=== PATIENT | male | born 1945 | race Caucasian/White ===

== ENCOUNTER 2018-06-10 00:31 | Inpatient (IN) | payer MEDICARE, OTHER ==
[2018-06-09 15:40] LABS: INR 1.34
--- NOTE | 2018-06-09 19:22 | RADIOLOGY IMAGING REPORT ---
FACILITY: [facility] PATIENT NAME: Magdy Rizvi : 1945 MR: [id number] V: [id number] EXAM DATE: ORDERING PHYSICIAN: LILLI STACY TECHNOLOGIST: Location: [facility] [place] Patient: Magdy Rizvi : 1945 Visit/Account:[id number] Date of Sevice: 06/09/2018 CT right shoulder Indication: Reverse total shoulder arthroplasty. Placement of antibiotic eluding spacer. Comparison: Plain radiographs right shoulder on 06/26/2016. Technique: Axial CT images were obtained through the right shoulder. Reformatted coronal and sagittal images were reviewed. One of the following dose optimization techniques was utilized in the performance of this exam: auto mated exposure control; adjustment of the mA and/or kV according to the patient's size; or use of an iterative reconstruction technique. Specific details can be referenced in the facility's radiology C T exam operational policy. Findings: Right shoulder arthroplasty seen with the humeral head component abutting the lummi bony glenoid wit h no significant periprosthetic lucency identified on these images. There is moderate anterior subluxation of the humeral head component suggested on the image 35 of the axial series in relation to the lummi bony glenoid. Along with this, there are small ossific densi ties along the anterior and posterior margins of the glenohumeral joint space likely representing sma ll loose bodies. Significant remodeling throughout the lummi glenoid also seen. Market widening of the AC joint may relate to sequela of prior acromioplasty and/or prior injury. Sm all ossific densities along the inferior margins of the lateral clavicle and of the acromion also not ed. Limited views right upper lung are overall unremarkable. There is evidence of a subacute complex appearing intra-articular fracture of the medial aspect of th e clavicle on images 38 through 43 of the axial series with minimal adjacent callus formation suggest ed as well. Correlate with the clinical history. . IMPRESSION: 1. Extensive postoperative changes the glenohumeral joint as described above in detail. 2. Evidence of subacute complex appearing intra-articular fracture medial right clavicle. Correlate with clinical history. Report Dictated By: Lorenzo Gomez MD at 06/09/2018 7:10 PM Report E-Signed By: Lorenzo Gomez MD at 06/09/2018 7:18 PM WSN:[email or web address]
[2018-06-10] VITALS (20 sets, daily range): BP systolic 96–151; BP diastolic 56–137
[~2018-06-10] VITALS: Ht 185.4 cm; Wt 75.3 kg
[~2018-06-10 00:31] MED LIST: AMIL5TAB11 PO; CEFT2FRO4 IV; CEPH500T7 PO; DULA1.5P SUBQ; EXEN10PE6 SQ; FURO40TA35 PO; GABA-490 PO; HYDR-385 PO; HYDR-654 PO; LACT10SO82 PO; LEVO50TA86 PO; MELA3TAB31 PO; MULT-768 PO; OXYC20TA99 PO; PER PO; TRAZ50TA34 PO
[2018-06-10] MEDS: NORMOSOL R SOLN(*) 1000 ML BAG 1,000 ML IV PRN ×2 (06:31→12:10)
[2018-06-10] MEDS ORDERED: VANCOMYCIN(*) 1 GM VIAL 1 GM, VANCOMYCIN (*) 0.5 GM VIAL 0.25 GM in NS(*) 0.9% 250 ML B... IVPB ONE (07:20)
[2018-06-10] MEDS ORDERED: CELECOXIB 200 MG CAP PO ONE ×2 (07:20)
[2018-06-10] MEDS ORDERED: MIDAZOLAM 2 MG/2 ML VIAL IVP PRN (07:20)
[2018-06-10] MEDS ORDERED: TRANEXAMIC AC 1000 MG/10ML SDV 1,000 MG in DEXTROSE 5% 50 ML BAG 50 ML IV ONE (07:20)
[2018-06-10] MEDS ORDERED: FAMOTIDINE 20 MG TAB PO ONE (07:20)
[2018-06-10] MEDS ORDERED: PREGABALIN 150 MG CAPSULE PO ONE (07:20)
[2018-06-10] MEDS ORDERED: ROPIVACAINE/EPI/CLONIDINE/KET 50 ML SYRINGE INJ ONE (07:20)
[2018-06-10] MEDS ORDERED: PREGABALIN 75 MG CAPSULE PO ONE (07:20)
[2018-06-10] MEDS ORDERED: LIDOCAINE/SOD BICARB 8.4% SYR ID ONE (07:20)
[2018-06-10] MEDS ORDERED: DEXAMETHASONE SOD 4 MG/ML VIAL ONE (07:28)
[2018-06-10] MEDS ORDERED: LIDOCAINE MPF 1% 5 ML VIAL ONE (07:28)
[2018-06-10] MEDS ORDERED: ONDANSETRON 4 MG/2 ML VIAL ONE (07:28)
[2018-06-10] MEDS ORDERED: PROPOFOL EMUL(*) 10MG/ML 20 ML 20 ML ONE (07:28)
[2018-06-10] MEDS ORDERED: fentaNYL CITR 250 MCG/5 ML AMP ONE (07:29)
[2018-06-10] MEDS ORDERED: KETAMINE HCL 200 MG/20 ML MDV ONE (07:30)
[2018-06-10] MEDS ORDERED: ePHEDrine 25 MG/5 ML DISP.SYR IVP ONE (08:34)
[2018-06-10] MEDS ORDERED: SUGAMMADEX SOD 200 MG/2 ML SDV ONE (08:44)
[2018-06-10] MEDS ORDERED: VANCOMYCIN 1 GM VIAL ONE (09:43)
[2018-06-10] MEDS ORDERED: fentaNYL CITR 100 MCG/2 ML AMP ONE ×2 (11:50→12:15)
[2018-06-10] MEDS ORDERED: MAGNESIUM CITRATE 300 ML BTL PO PRN (13:30)
[2018-06-10] MEDS ORDERED: KCL/D5LR 20 MEQ/1000 ML PREMIX 1,000 ML IV PRN (13:30)
[2018-06-10] MEDS ORDERED: ONDANSETRON 4 MG/2 ML VIAL IVP PRN (13:30)
[2018-06-10] MEDS ORDERED: ACETAMINOPHEN 500 MG TAB PO PRN (13:30)
[2018-06-10] MEDS ORDERED: diphenhydrAMINE 25 MG CAP PO PRN (13:30)
[2018-06-10] MEDS ORDERED: NALOXONE HCL 0.4 MG/ML VIAL IVP PRN (13:30)
[2018-06-10] MEDS ORDERED: FLUSH 10 ML SYR IVP PRN (13:30)
[2018-06-10] MEDS ORDERED: PROMETHAZINE 25 MG/ML 1 ML AMP IVP PRN (13:30)
[2018-06-10] MEDS ORDERED: MORPHINE SULFATE 30 MG PCA IV PRN (13:30)
[2018-06-10] MEDS ORDERED: PCA LOCKBOX KEYS XX PRN (14:05)
[2018-06-10] MEDS ORDERED: oxyCODONE HCL 5 MG CAP PO PRN (14:05)
[2018-06-10] MEDS ORDERED: INSULIN HUM LISPRO 100 UN/ML 3 ML VIAL SUBQ PRN (14:10)
--- NOTE | 2018-06-10 14:12 | Hospitalist Consultation ---
History of Present Illness Requesting Physician Dr. Harmon Reason for Consult Medical Management Chief Complaint s/p right shoulder revision History of Present Illness He was admitted s/p right shoulder revision. It is reported the surgery went well and without complication. History Problems: (1) DM2 (diabetes mellitus, type 2) Status: Chronic (2) Hypothyroid Status: Chronic (3) Laennecs cirrhosis Status: Chronic (4) Insomnia Status: Chronic Home Meds Reported Medications Dulaglutide (Trulicity) 1.5 Mg/0.5 Ml Pen.injctr, 1.5 MG SUBQ QWEEK PRN for DIRECTED 06/02/18 Melatonin (MELATONIN) 3 Mg Tablet, 3 MG PO HS 06/18/16 Multivitamin/Iron/Folic Acid (CENTRUM COMPLETE MULTIVIT TAB) 1 Each Tablet, 1 EACH PO QDAY 06/18/16 Levothyroxine Sodium (LEVOTHYROXINE SODIUM) 50 Mcg Tablet, 50 MCG PO QDAY, TAB 06/18/16 Trazodone Hcl (TRAZODONE HCL) 50 Mg Tablet, 50 MG PO QHS 06/18/16 Amiloride Hcl (AMILORIDE HCL) 5 Mg Tablet, 5 MG PO BID 06/18/16 Gabapentin (NEURONTIN) 300 Mg Capsule, 300 MG PO QDAY, CAPSULE 06/18/16 Lactulose (LACTULOSE) 10 Gm/15 Ml Solution, 5 GM PO BID 06/18/16 Furosemide (LASIX) 40 Mg Tablet, 1 TAB PO QDAY, TAB 06/18/16 Allergies: Coded Allergies: acetaminophen (Verified Adverse Reaction, Intermediate, 06/10/18) PT REQUEST NO TYLENOL PRODUCTS Patient History: FH: Porsche Gehrig's disease FATHER Hx Smoking: No Smoking Status: Never Smoker Caffeine Intake: Tea, Soda Caffeine/Cups Per Day: 2 soda/day, 1 tea/day Hx Alcohol Use: No When Quit Alcohol?: 20 YRS AGO Hx 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) Social Drug Use: Former Social Drugs: Marijuana Review of Systems All Systems Reviewed/Normal: Yes, Except as Noted Exam Vital Signs Vital Signs Date Time Temp Pulse Resp B/P (MAP) Pulse Ox O2 Delivery O2 Flow Rate FiO2 06/10/18 13:30 77 131/69 (89) 98 Nasal Cannula 2.0 06/10/18 13:05 12 06/10/18 13:05 97.9 General Appearance: Alert, Awake, No Acute Distress, Afebrile Neuro: No Gross deficits Cardiovascular: Regular Rate and Rhythm Respiratory: No Respiratory Distress, Clear to Auscultation Extremities: Warm, Perfused; No Edema Psych: Alert & Oriented X3, Appropriate Mood & Affect Medical Decision Making Data Points Result Diagram: 06/10/18 1208 Assessment and Plan Problems: (1) S/P shoulder surgery Status: Acute Assessment & Plan: Followed by Dr. Harmon. I changed his post-operative pain medications secondary to liver cirrhosis. I recommend the patient not take Tylenol. He was switched to Oxycodone from Percocet. (2) DM2 (diabetes mellitus, type 2) Status: Chronic Assessment & Plan: He is on chronic treatment with Trulicity injections. He does take his injections on Wednesday. We will place him on ADA diet, Sliding scale insulin level #2, and AC/HS glucose checks. (3) Hypothyroid Status: Chronic Assessment & Plan: He is on chronic treatment with Levothyroxine. (4) Laennecs cirrhosis Status: Chronic Assessment & Plan: He is on chronic treatment with Lactulose, Amiloride and Lasix. He will be placed on Lasix with parameters and Lactulose. (5) Insomnia Status: Chronic Assessment & Plan: He is on chronic treatment with Trazodone and Melatonin. Venous Thromboembolism Antithrombotics Is Pt On Any Antithrombotics?: No Exam Sepsis Risk: No Definite Risk WOODY SANCHES Jun 10, 2018 14:12
--- NOTE | 2018-06-10 14:41 | NUR ---
Occupational Therapy Impression Pt alert and agreeable to OT tx. Reviewed precautions, wear of UltraSling, reviewed ther ex per protocol. Pt declined further needs and getting OOB at this time. Reporting pain at 07/31. Ice applied, positioning offered. Plan for final visit tomorrow and discharge to family's home in [place] until able to drive home ([place]. Occupational Therapy Goals Patient's Goal
--- NOTE | 2018-06-10 16:43 | OPERATIVE REPORT 1 ---
EVENT DATE: June 10, 2018 SURGEON: Bolivar Harmon MD ANESTHESIOLOGIST: Lorenzo Vasquez MD ANESTHESIA: General. 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 No evidence of purulent material, but very weak bone. PROCEDURES PERFORMED 1. Explantation of deep hardware (prothesis of antibiotic-loaded acrylic cement/PROSTALAC implant), . 2. Revision reverse shoulder arthroplasty, 64653, modifier -22, additional difficulty due to revision procedure. 3. Placement of Dall-Miles cables for intraoperative fracture at proximal humerus, 73048. ESTIMATED BLOOD LOSS 350 INTRAVENOUS FLUIDS Crystalloid 1800, no colloid. TOURNIQUET TIME None. SPECIMENS None. COMPLICATIONS Comminuted fracture, proximal humerus during implantation of revision stem. IMPLANTS USED Dall-Miles cable size 2 mm on the inferior shaft. Dall-Miles cable size 1.6 on the proximal aspect of the metaphysis. Delta Xtend cementless metaglene with four screws, a standard glenosphere with a modular size 14 humeral stem, BRODY coated, and a size 1 centered with a +3 standard cup. SUMMARY OF PROCEDURE The patient was brought into the operating room and placed on the OR table in the supine position. After obtaining adequate general anesthesia, he was placed in the semi-beach chair position, and his right shoulder was prepped and draped in the usual sterile fashion. He was very stiff and had minimal range of motion in the shoulder. The original surgery that had been undertaken before our first surgical procedure had dictated where his scar would be, and we re-utilized this. However, he really does not have much of a subscapularis or rotator cuff structure anywhere on the shoulder, so we just opened up the capsular tissue on the anterior aspect and reflected it after creating subcutaneous planes. We brought the PROSTALAC implant forward and then explanted it. It did require a little bit of freeing up around the periphery to get it out. It appeared that the humeral shaft was very thin, but still intact. We took care to pad it for the retraction so that it would not be under too much load and would decrease risk of fracture and then pushed it out of the way. We then began to work on establishing visualization of the glenoid. This took quite some time. There was abundant scar tissue filling the void in this region, and we had to cut away a lot of tissue before finally getting down to good exposure of the bone. We had obtained a CT scan before the surgery and used this to map out the central peg hole, which was identified and then marked for the remainder of screws. I placed a wire and milled, followed by use of the superior milling reamer to confirm that we had adequate position. The metaglene was inserted, and then we placed screws. We got a 36 proximal, a 42 distal, and then an 18 anterior with a 26 posterior. Good fixation was obtained. These were then locked down where necessary (superior and inferior). We then inserted the glenosphere. I elected not to go with an eccentric glenosphere because it appeared that he was going to be extremely tight since he had been sitting in a proximally migrated position for most of his life and now for the last year was also in that same position again. We then directed our attention to the humerus. The humerus was irrigated, and then we began to break through the bridge that had occurred on the inferior aspect of the PROSTALAC implant using a 6 mm reamer. We reamed up to a 10 using a motor reamer, and then switched to manual reaming from 12 on up. We got up to 14 and then inserted the 14 mm reamer for the metaphyseal portion, but surprisingly, this was quite tight to fit in. I checked once again to ensure that the 14 reamer would fit well, but it was still tight which is somewhat strange, but it does not appear that he has any medullary bone remaining. We were right on the cortical margin, and the fins might have been projecting into it a little bit more firmly. I elected to do the metaphyseal reaming with the 12, which allowed us to sink it down a little bit lower, but even this was relatively tight. We reamed and then placed the trial which had good purchase, and then I reduced the trial with a trial +3 which seemed to fit reasonably well. It was quite tight and quite difficult to reduce after reduction. Upon reduction, I noticed that there was a crack that had developed over the posterior aspect and the anterior aspect of the humeral metaphysis down into the shaft. It took some time to identify the nature of this fracture, but once we opened up the fragments and identified where they were, it did look like something that we should restore as there was adequate bone quality to allow for potential healing. After bringing the humerus forward out of the wound, we inserted the fracture fragment on the portion that went down into the shaft and fixated this with a 2 mm CC [employer] cable clamp. After cutting off the excess here, we went more proximal, added the third piece that had away from the humerus, and then put a 1.6 mm clamp, but left it on the tightening device, at which point we then reamed again with a 14, finding that it was adequate. We then inserted the final implant. It did not seat quite as low as the old one, but again, the old one had fractured towards the end, and that is why it seemed to settle down further. I do believe that the insert now was probably very close to where his original one was, but given his lack of proximal bone on the humerus, it is really quite difficult to say. In any case, we did not make it so tight that it was not possible to reduce, but it was fairly tight. After reducing it, I mobilized him to ensure that there was no tendency to subluxate or dislocate in any way, and there was certainly not. The wound was irrigated. We then closed the deep tissue with 0 Vicryl, but again, there was not really a classic anatomic closure of capsule and subscapularis here since there is just one sheet of soft tissue covering the joint, and there is, unfortunately, quite a bit of deep space, so he is at risk of recurrent infection. Given this, we did place vancomycin powder into the wound. We also injected the local anesthetic throughout the wound and then closed with 3-0 Vicryl next, followed by 4-0 Monocryl. He was given a dry, sterile dressing and an abduction pillow to take tension off his incision. He was then awakened and transferred to the recovery area in stable condition. TRAVIS
--- NOTE | 2018-06-10 17:29 | RADIOLOGY IMAGING REPORT ---
FACILITY: [facility] PATIENT NAME: Magdy Rizvi : 1945 MR: [id number] V: [id number] EXAM DATE: ORDERING PHYSICIAN: LILLI STACY TECHNOLOGIST: Location: [facility] [place] Patient: Magdy Rizvi : 1945 Visit/Account:[id number] Date of Sevice: 06/10/2018 SHOULDER 1 VIEW RIGHT Indication: Postop Comparison: June 26, 2016 Findings: Compared to prior study, gas is now present within the joint space. Reverse two-part TSA is still pr esent. Two cerclage wires are now noted along the proximal humeral shaft. Limited views of the right upper lung zone are unremarkable. There is widening of the AC joint. IMPRESSION: 1. Postoperative changes from TSA revision. No abnormalities are noted Report Dictated By: Kevin Kaplan at 06/10/2018 5:22 PM Report E-Signed By: Kevin Kaplan at 06/10/2018 5:25 PM WSN:[email or web address]
[2018-06-10] MEDS: LACTULOSE 10 GM/15 ML UDCUP PO SCH (20:44)
[2018-06-10] MEDS ORDERED: MELATONIN 3 MG TAB PO SCH (21:00)
[2018-06-10] MEDS ORDERED: traZODone HCL 50 MG TAB PO SCH (21:00)
[2018-06-11] VITALS: BP 108/53
[2018-06-11 01:00] VITALS: BP 114/56
[2018-06-11 02:00] VITALS: BP 108/54
[2018-06-11 03:00] VITALS: BP 111/52
[2018-06-11 04:00] VITALS: BP 125/56
[2018-06-11 05:44] LABS: PLATELET COUNT, AUTOMATED 63 K/uL (150-450)
[2018-06-11] MEDS ORDERED: LEVOTHYROXINE SOD 0.05 MG TAB PO SCH (06:00)
[2018-06-11 07:11] VITALS: BP 124/62
[2018-06-11] MEDS ORDERED: OXYC5TAB38 PO (07:57)
[2018-06-11 08:59] VITALS: Ht 185.4 cm; Wt 75.3 kg
[2018-06-11] MEDS ORDERED: GABAPENTIN 300 MG CAP PO SCH (09:00)
[2018-06-11] MEDS ORDERED: FUROSEMIDE 40 MG TAB PO SCH (09:00)
[2018-06-11] MEDS: LACTULOSE 10 GM/15 ML UDCUP PO SCH (09:36)
--- NOTE | 2018-06-11 09:36 | Hospitalist Progress Note ---
Subjective Progress Notes Subjective No cp/sob. Physical Exam Vital Signs Date Time Temp Pulse Resp B/P (MAP) Pulse Ox O2 Delivery O2 Flow Rate FiO2 06/11/18 07:51 84 06/11/18 07:35 Room Air 06/11/18 07:11 98.0 61 12 124/62 (82) 2.0 Intake and Output 06/11/18 07:00 Intake Total 2870 ml Balance 2870 ml Intake Oral 720 ml IV Total 2150 ml # Voids 3 General Appearance: Alert, Awake, No Acute Distress Result Diagram: 06/11/18 0533 Assessment and Plan Problems: (1) S/P shoulder surgery Status: Acute Assessment & Plan: Followed by Dr. Harmon. Post-operative pain medications secondary to liver cirrhosis. We recommend the patient not take Tylenol. He was switched to Oxycodone from Percocet. (2) DM2 (diabetes mellitus, type 2) Status: Chronic Assessment & Plan: He is on chronic treatment with Trulicity injections. He does take his injections on Wednesday. We will place him on ADA diet, Sliding scale insulin level #2, and AC/HS glucose checks. (3) Hypothyroid Status: Chronic Assessment & Plan: He is on chronic treatment with Levothyroxine. (4) Laennecs cirrhosis Status: Chronic Assessment & Plan: He is on chronic treatment with Lactulose, Amiloride and Lasix. (5) Insomnia Status: Chronic Assessment & Plan: He is on chronic treatment with Trazodone and Melatonin. Exam Sepsis Risk: No Definite Risk JOSE MICHAUD MD Jun 11, 2018 09:36
== END 2018-06-11 10:05 | disposition home or self-care (01) | DRG 940 ==
LOC: OR 00:31 → MED 13:05
PROVIDERS: ADMIT Orthopaedic Surgery Hand Surgery; ATTEND Orthopaedic Surgery Hand Surgery
PROC: 0RPJ0JZ Removal of Synthetic Substitute from Right Shoulder Joint, Open Approach (ICD-10-PCS; 2018-06-10)
PROC: 0RHJ04Z Insertion of Internal Fixation Device into Right Shoulder Joint, Open Approach (ICD-10-PCS; 2018-06-10)
PROC: 0RRJ00Z Replacement of Right Shoulder Joint with Reverse Ball and Socket Synthetic Substitute, Open Approach (ICD-10-PCS; principal; 2018-06-10 08:08)
DX: T84.59XD Infection and inflammatory reaction due to other internal joint prosthesis, subsequent encounter (principal); M96.631 Fracture of radius or ulna following insertion of orthopedic implant, joint prosthesis, or bone plate, right arm; E11.9 Type 2 diabetes mellitus without complications; K70.30 Alcoholic cirrhosis of liver without ascites; Y65.8 Other specified misadventures during surgical and medical care; Y79.3 Surgical instruments, materials and orthopedic devices (including sutures) associated with adverse incidents; G47.00 Insomnia, unspecified; E03.9 Hypothyroidism, unspecified; Z88.8 Allergy status to other drugs, medicaments and biological substances; Z79.4 Long term (current) use of insulin
CPT/HCPCS: 36415; 36416; 82948; 85014; 85018; 85025; 85610; 86850; 86870; 86900; 86901; 86922; 97165; C1713; C1769; C1776; J1100; J2001; J2405; J2704; J3010; J3370; J3490; J7050; J7060